=== PATIENT | male | born 1970 | race Caucasian/White ===

== ENCOUNTER 2017-10-10 10:11 | Emergency (ER) | payer OTHER ==
[2017-10-10 11:52] LABS: URINE BLOOD (Dip) POC Negative (NEGATIVE); URINE KETONES (Dip) POC 1+ (NEGATIVE); URINE LEUKOCYTE EST (Dip) POC Negative (NEGATIVE); URINE NITRITE (Dip) POC Negative (NEGATIVE); URINE TOTAL PROTEIN POC Negative (NEGATIVE)
[2017-10-10 11:52] LABS: URINE PH (Dip) POC 5.5 (5.0-8.5)
== END 2017-10-10 15:10 | disposition home or self-care (01) ==
LOC: FTE 10:11
DX: N50.812 Left testicular pain (principal); N50.811 Right testicular pain; R82.99 Other abnormal findings in urine
CPT/HCPCS: 76870; 81003; 99284-25